=== PATIENT | female | born 1945 | race Caucasian/White ===

== ENCOUNTER 2018-12-10 15:24 | Emergency (ER) | payer OTHER ==
--- NOTE | 2018-12-10 15:53 | RAD ---
Exam: XR Foot Rt 3 View STANDARD HISTORY: Right foot injury. Swelling. COMPARISON: None FINDINGS: Subcutaneous soft tissue swelling is seen at the dorsal aspect of the midfoot and adjacent to the fif th metacarpal phalangeal joint. No acute fracture, dislocation, or other acute osseous abnormality is identified. IMPRESSION: Mild soft tissue swelling without evidence of an acute osseous abnormality.
== END 2018-12-10 16:10 | disposition home or self-care (01) ==
LOC: NAV ERS 15:24
DX: S93.601A Unspecified sprain of right foot, initial encounter (principal); L03.116 Cellulitis of left lower limb; E78.5 Hyperlipidemia, unspecified; F32.9 Major depressive disorder, single episode, unspecified; F17.210 Nicotine dependence, cigarettes, uncomplicated; X50.1XXA Overexertion from prolonged static or awkward postures, initial encounter

== ENCOUNTER 2021-03-30 13:38 | Emergency (ER) | payer MEDICARE, OTHER | END 2021-03-30 15:18 | disposition short-term general hospital (02) | LOC: NAV ERS 13:38 | DX: M25.461 Effusion, right knee (principal); M25.561 Pain in right knee; M79.89 Other specified soft tissue disorders; M79.661 Pain in right lower leg; E78.5 Hyperlipidemia, unspecified; E78.00 Pure hypercholesterolemia, unspecified; F17.210 Nicotine dependence, cigarettes, uncomplicated; Z87.19 Personal history of other diseases of the digestive system | CPT/HCPCS: 36415; 85379; 99284 ==

== ENCOUNTER 2024-10-26 17:38 | Emergency (ER) | payer MEDICARE ==
[2024-10-26] MEDS ORDERED: Sodium Chloride 0.9% 1,000 ML ONE (17:59)
[2024-10-26 18:34] LABS: INR-International Normal Ratio 1.2; Prothrombin Time 15.2 sec (12.0-14.7)
[2024-10-26 18:41] LABS: ALT (SGPT) 12 U/L (Less than 34); AST (SGOT) 23 U/L (11-34); Albumin 3.2 g/dL (3.1-4.5); Alkaline Phosphatase 88 U/L (40-110); Anion Gap 12 mmol/L (10-20); BUN (Urea Nitrogen) 15 mg/dL (9.8-20.1); Bilirubin, Total 0.5 mg/dL (0.3-1.2); Calc. Creatinine Clearance 0 mL/min (70-130); Calcium 8.8 mg/dL (7.8-10.44); Carbon Dioxide 21 mmol/L (23-31); Chloride 111 mmol/L (98-107); Estimated GFR 34; Globulin 2.6 g/dL (2.4-3.5); Glucose 126 mg/dL (83-110); Potassium 3.4 mmol/L (3.5-5.1); Protein, Total 5.8 g/dL (5.8-8.1); Sodium 141 mmol/L (136-145)
[2024-10-26 18:47] LABS: #Basophils 0.1 thou/uL (0.0-0.2); #Lymphocytes 1.3 thou/uL (1.20-3.40); #Monocytes 0.7 thou/uL (0.11-0.59); #Neutrophils 6.7 thou/uL (1.40-6.50); %Basophils 0.6 % (0.0-1.0); %Eosinophils 0.5 % (0.0-10.0); %Monocytes 7.7 % (0.0-10.0); %Neutrophils 76.2 % (42.0-75.0); Hematocrit 32.9 % (36.0-47.0); Hemoglobin 10.9 g/dL (12.0-16.0); Mean Corpuscular HGB CONC 33.1 g/dL (32.0-36.0); Mean Corpuscular Hemoglobin 27.4 pg (27.0-31.0); Mean Corpuscular Volume 82.9 fl (78.0-98.0); Platelet Count 177 10x3/uL (130-400); RBC Distribution Width 12.5 % (11.5-14.5); Red Blood Cell (RBC) Count 3.97 mill/uL (4.20-5.40); White Blood Cell (WBC) Count 8.8 10x3/uL (4.8-10.8)
== END 2024-10-26 20:05 | disposition short-term general hospital (02) ==
LOC: NAV ERS 17:38
DX: R10.814 Left lower quadrant abdominal tenderness (principal); E78.00 Pure hypercholesterolemia, unspecified; F17.210 Nicotine dependence, cigarettes, uncomplicated; Z79.82 Long term (current) use of aspirin; Z79.899 Other long term (current) drug therapy
CPT/HCPCS: 85610; 86900; 86901; 99285; J7030